=== PATIENT | female | born 1965 | race Caucasian/White ===

== ENCOUNTER 2017-06-09 10:11 | Emergency (ER) | payer BC ==
[~2017-06-09] VITALS: Wt 110.0 kg
[~2017-06-09 10:11] MED LIST: CYCL-319 PO; VIC
[2017-06-09] MEDS ORDERED: KETOROLAC 30 MG INJ IM STA (11:00)
--- NOTE | 2017-06-09 11:56 | RADRPT ---
PROCEDURE: XR Right Hip. CLINICAL INDICATION: Right hip pain TECHNIQUE: AP and frog lateral views of the right hip were performed. COMPARISON: None. FINDINGS: There is normal mineralization and alignment. No fracture or osseous lesion is identified. Joint spa marilee are well maintained. There is no evidence of osteophyte erosion. The soft tissues are unremarka ble. IMPRESSION: 1. Unremarkable right hip x-rays series. RPTAT: KK .Mk Sheth MD, MD Date Time Electronically viewed and signed by .Mk Sheth MD, on 06/09/2017 11:55 .B/
--- NOTE | 2017-06-09 11:56 | RADRPT ---
PROCEDURE: XR Right Femur. CLINICAL INDICATION: Right femur pain TECHNIQUE: AP and lateral views of the right femur were obtained. COMPARISON: No prior studies are available for comparison. FINDINGS: There is normal mineralization and alignment of the right femur. There is no evidence of acute fract ure dislocation. There appear to be degenerative changes of the knee which is suboptimally evaluated on this study.. The soft tissues are unremarkable. IMPRESSION: 1. No evidence of fracture or dislocation. RPTAT: HJBF .Mk Sheth MD, MD Date Time Electronically viewed and signed by .Mk Sheth MD, MD on 06/09/2017 11:56 .B/
--- NOTE | 2017-06-09 12:40 | ERD ---
ER Documentation Chief Complaint Date/Time DATE: 06/09/17 TIME: 12:31 Chief Complaint R LEG PAIN X 1 WEEK HPI This 51-year-old female presents emergency department today with her daughter complaining of left knee pain and right hip and right upper leg pain for the past couple of days. Patient states that 2 days ago she lost her balance and twisted her leg. Denies falling. States she has a known history of arthritis and does take medication occasionally. States she took ibuprofen. Denies any fevers or chills, dysuria, loss of bowel or bladder control, back pain, Difficulty breathing or shortness of breath ROS All systems reviewed and are negative except as per history of present illness. Medications Home Meds Active Scripts Acetaminophen* (Tylophen*) 500 Mg Capsule, 1 CAP PO Q6H Y for PAIN AND OR ELEVATED TEMP, #30 CAP Prov:ALOK CUELLAR PA-C 06/09/17 Naproxen* (Naprosyn*) 500 Mg Tablet, 500 MG PO BID Y for PAIN AND/OR INFLAMMATION, #30 TAB Prov:ALOK CUELLAR PA-C 06/09/17 Tramadol HCl (Tramadol HCl) 50 Mg Tablet, 50 MG PO Q4 Y for PAIN, #20 TAB Prov:ALOK CUELLAR PA-C 06/09/17 Cyclobenzaprine Hcl* (Cyclobenzaprine Hcl*) 10 Mg Tablet, 5 MG PO QHS for 14 Days, TAB Prov:MORGAN TSAI PA-C 07/10/15 Reported Medications Acetaminophen/Hydrocodone (Vicodin) 1 Tab Tab 07/31/10 Allergies Allergies: Coded Allergies: No Known Allergy (Verified , 06/09/17) PMhx/Soc History of Surgery: Yes (GALLBLADDER SURGERY 2007, HERNIA SURGERY, c section x' s 3 ) Anesthesia Reaction: No Hx Neurological Disorder: No Hx Respiratory Disorders: No Hx Cardiac Disorders: No Hx Psychiatric Problems: No Hx Miscellaneous Medical Probl: Yes (arthritis ) Hx Alcohol Use: No Hx Substance Use: No Hx Tobacco Use: No Smoking Status: Never smoker Physical Exam Vitals Vital Signs Date Time Temp Pulse Resp B/P Pulse Ox O2 Delivery O2 Flow Rate FiO2 06/09/17 10:12 98.9 79 18 171/104 99 Physical Exam Const: obese, NAD Head: Atraumatic Eyes: Normal Conjunctiva ENT: Normal External Ears, Nose and Mouth. Neck: Full range of motion..~ No meningismus. Resp: Clear to auscultation bilaterally Cardio: Regular rate and rhythm, no murmurs Abd: Soft, non tender, non distended. Normal bowel sounds Skin: No petechiae or rashes Back: No midline or flank tenderness Ext: Left knee with no obvious deformity. No effusion. No ecchymosis. Full active range of motion. Diffusely tender to palpation. No erythema or warmth. Pulses 2+. Distal neurovascularly intact. Right hip with no obvious deformity. Tenderness palpation over lateral aspect and into the groin.Negative straight leg raise. Neur: Awake and alert Psych: Normal Mood and Affect Results 24 hrs Current Medications Medications (Trade) Dose Ordered Sig/Janelle Route PRN Reason Start Time Stop Time Status Last Admin Dose Admin Ketorolac Tromethamine (Toradol) 30 mg ONCE STAT IM 06/09/17 11:00 06/09/17 11:01 DC 06/09/17 11:05 DIAGNOSTIC IMAGING REPORT Patient: JEFFREY MAHONEY : 1965 Age: 51 Sex: F MR #: [id number] DOS: 06/09/17 0000 Ordering MD: ALOK CUELLAR PA-C Location: [facility] Room/Bed: PROCEDURE: XR Right Femur. CLINICAL INDICATION: Right femur pain TECHNIQUE: AP and lateral views of the right femur were obtained. COMPARISON: No prior studies are available for comparison. FINDINGS: There is normal mineralization and alignment of the right femur. There is no evidence of acute fracture dislocation. There appear to be degenerative changes of the knee which is suboptimally evaluated on this study.. The soft tissues are unremarkable. IMPRESSION: 1. No evidence of fracture or dislocation. RPTAT: HJBF .Mk Sheth MD, Date Time Electronically viewed and signed by .Mk Sheth MD, MD on 2016 11:56 .B/ CC: ALOK CUELLAR PA-C DIAGNOSTIC IMAGING REPORT Patient: JEFFREY MAHONEY : 1965 Age: 51 Sex: F MR #: [id number] DOS: 06/09/17 0000 Ordering MD: ALOK CUELLAR PA-C Location: [facility] Room/Bed: PROCEDURE: XR Right Hip. CLINICAL INDICATION: Right hip pain TECHNIQUE: AP and frog lateral views of the right hip were performed. COMPARISON: None. FINDINGS: There is normal mineralization and alignment. No fracture or osseous lesion is identified. Joint spaces are well maintained. There is no evidence of osteophyte erosion. The soft tissues are unremarkable. IMPRESSION: 1. Unremarkable right hip x-rays series. RPTAT: KK .Mk Sheth MD, MD Date Time Electronically viewed and signed by .Mk Sheth MD, MD on 2016 11:55 .B/ CC: ALOK CUELLAR PA-C Procedures/MDM This 51-year-old female who presents the emergency department today complaining of right hip and left knee pain for the past couple of days after twisting it. Patient has known history of arthritis in her knees however she has new complaints of right hip pain and therefore did obtain images given patient's complaints. Per the radiology report images of the right hip and femur are unremarkable. There is no fracture dislocation. Joint spaces are well-maintained. There does appear to be disc degenerative changes of the knee based on her right femur images. Patient is afebrile and otherwise well-appearing. Low suspicion for septic joint or gout. She did not have any fall I do have low suspicion for acute fracture dislocation. Patient had a cane and was comfortable ambulating with that.I have low suspicion for cauda equina or abscess as patient has no loss of bowel or bladder control or back pain. I have low suspicion for DVT. Patient has no lower extremity swelling and her oxygen saturation 99%. Patient symptoms at this time is consistent with muscular skeletal strain versus sprain versus overuse. Patient was given Toradol here in the emergency department And pain improved slightly. She will begin a prescription for short course of tramadol, Naprosyn and Tylenol for home. Patient had a cane he was comfortable ambulating with that.Patient indicated she had taken tramadol in the past but did not currently have any. Patient's blood pressure was elevated at 171/104. In speaking further to the patient she states that every time she goes to the doctor they tell her that she has high blood pressure but she is not currently taking any medication for it. Denies any headache, dizziness, blurred vision. Low suspicion for hypertensive emergency at this time. I explained to the patient and her daughter that she does need to address her hypertension. Given that she is asymptomatic at this time I will not give her medication here in the emergency department. At this time the patient is stable for discharge and outpatient management. Patient should follow up with their PCP in the next 1-2 days. They may return to the emergency department sooner for any persistent or worsening of symptoms. Patient and daughter understood and agreed with the plan. Departure Diagnosis: Primary Impression: Pain of right leg Additional Impression: Hypertension Hypertension type: unspecified Qualified Code: I10 - Hypertension, unspecified type Condition: Fair ALOK CUELLAR PA-C Jun 09, 2017 12:40
[2017-06-09] MEDS ORDERED: NAPR-260 PO (12:42)
[2017-06-09] MEDS ORDERED: ACET500C5 PO (12:42)
[2017-06-09] MEDS ORDERED: TRAM50TA2 PO (12:42)
== END 2017-06-09 13:01 | disposition home or self-care (01) ==
LOC: FTE 10:11
DX: M79.604 Pain in right leg (principal); I10 Essential (primary) hypertension
CPT/HCPCS: 73510; 73550; 96372; 99284; J1885